=== PATIENT | female | born 1950 | race Caucasian/White ===

== ENCOUNTER 2017-11-12 17:14 | Emergency (ER) | payer MEDICARE ==
[2017-11-12] MEDS ORDERED: NORMAL SALINE 1,000 ML IV ONE (18:05)
[2017-11-12] MEDS ORDERED: IBUPROFEN 400 MG TABLET PO ONE (18:05)
--- NOTE | 2017-11-12 18:10 | ERNOTE ---
Medical Problem HPI - General Chief Complaint: Flu Symptoms Time Seen by Provider: 11/12/17 17:53 Source: patient, family Exam Limitations: no limitations - Immun/Allergies/Home Medications Immunizations: IMMUNIZATION HX Immunizations Up to Date Yes History of Influenza Vaccine No Hx Pneumococcal Vaccination No Allergies/Adverse Reactions: Allergies Penicillins Allergy (Intermediate, Verified 11/12/17 17:51) Hives Home Medications: HOME MEDICATIONS Acetaminophen [Tylenol] 1,000 mg PO Q4H 11/12/17 [Last Taken Unknown] Albuterol Sulfate [Ventolin HFA] 2 puff IH Q6H PRN 7 Days inhaler 11/12/17 [ Last Taken Unknown] Doxycycline Monohydrate 100 mg PO BID #20 tablet 11/12/17 [Last Taken Unknown] Fluconazole [Diflucan] 100 mg PO DAILY #2 tablet 11/12/17 [Last Taken Unknown] Lactobacillus Combination No.4 [Probiotic] 1 each PO DAILY 11/12/17 [Last Taken Unknown] Loratadine [Allergy] 10 mg PO DAILY 11/12/17 [Last Taken Unknown] guaiFENesin [Mucinex] 1,200 mg PO BID 11/12/17 [Last Taken Unknown] predniSONE [Deltasone] 20 mg PO BID #10 tablet 11/12/17 [Last Taken Unknown] - History of Present History Narrative: Patient presents with a fever, cough and a rapid heart rate. Patient was seen over at urgent care and her influenza was found to be negative and she was sent over here for further workup Timing: constant Severity: moderate Review of Systems - Review of Systems Constitutional: Present: See HPI EYE: Present: no symptoms reported ENT: Present: no symptoms reported Respiratory: Present: cough Cardiology: Present: palpitations Gastrointestinal/Abdominal: Present: no symptoms reported Genitourinary: Present: no symptoms reported Musculoskeletal: Present: no symptoms reported Skin: Present: no symptoms reported Neurological: Present: no symptoms reported Endocrine: Present: no symptoms reported Hematologic/Lymphatic: Present: no symptoms reported Psych: Present: no symptoms reported - Patient's Past Medical History Patient History - Medical: Arthritis Patient History - Cardiac/Respiratory: No pertinent hx Patient History - Cancer: Skin Patient History - Surgical Procedures: Hysterectomy Patient History - Other: None - Social History Living Situations: home Psych History: No pertinent hx Smoking Status: Never smoker Have you smoked in the past 12 months: Yes Alcohol Use: rarely Drug Use: none - Immunizations Immunizations Up to Date: Yes Hx Pneumococcal Vaccination: No History of Influenza Vaccine: No Physical Exam - Physical Exam General Appearance: Present: wd/wn, alert, moderate distress Head Exam: Present: normal inspection, no evidence of injury Eye Exam: Normal inspection: bilateral, PERRL: bilateral Ears, Nose, Throat: Present: normal ENT inspection, H, normal pharynx Neck: Present: normal inspection, nontender Respiratory: Present: no respiratory distress, no accessory muscle use, chest nontender, rales - questionable in the left lower lobe Cardiovascular/Chest: Present: no murmur, normal peripheral pulses, tachycardia Gastrointestinal/Abdominal: Present: normal bowel sounds, nontender, nondistended, soft, no organomegaly Rectal Exam: Present: deferred Back Exam: Present: normal inspection, normal range of motion Extremity Exam: Present: normal inspection, non-tender, no edema, normal range of motion Neurological Exam: Present: alert, oriented, normal mood/affect Skin Exam: Present: normal color, warm/dry Lymphatic Exam: Present: no adenopathy ED Progress - Results and Orders Patient's Lab Results:: I have reviewed the patient's lab results. - Vital Signs Patient's Vital Signs:: I have reviewed the patient's vital signs. Vital Signs: Vital Signs 11/12/17 17:45 Temperature 38 C H Pulse Rate 127 H Respiratory 16 Rate Blood Pressure 122/96 O2 Sat by Pulse 95 Oximetry - X-Ray X-Ray #1 X-Ray: chest Interpretation: Reviewed by me - Progress/Reassessment Chief Complaint: Flu Symptoms Progress:: Improved Plan - Plan Plan: Patient felt better after a liter of fluid and something to help get her fever down. Patient be started on antibiotics prednisone and Ventolin inhaler and she agrees to follow up with her family physician in 10 days to 2 weeks. Departure Clinical Impression: Bronchitis, COPD (chronic obstructive pulmonary disease) with acute bronchitis - Departure Disposition: Home self-care Condition: Good Instructions: Chronic Obstructive Pulmonary Disease Exacerbation, [id number] Referrals: Deborah Her MD [Primary Care Provider] - Prescriptions: Albuterol Sulfate [Ventolin HFA] 2 puff IH Q6H PRN 7 Days inhaler PRN Reason: Wheezing Doxycycline Monohydrate 100 mg PO BID #20 tablet Fluconazole [Diflucan] 100 mg PO DAILY #2 tablet predniSONE [Deltasone] 20 mg PO BID #10 tablet
[2017-11-12] MEDS ORDERED: IBUPROFEN 400 MG TABLET ONE (18:13)
[2017-11-12 18:24] LABS: Hematocrit 44.4 % (37.0-47.0); Mean Cell Volume 92.5 fl (78-100); Mean Corpuscular Hemoglobin 33.3 pg (27-31); Mean Platelet Volume 9.5 fl (6.0-9.5); Neutrophil # 6.7 K/mm3 (1.3-6.0); Neutrophil % 82.4 % (42-75.0); Platelet Count 239 K/mm3 (150-450); Red Cell Distribution Width 11.6 % (11.5-14.0); White Blood Count 8.2 K/mm3 (4.0-10.5)
[2017-11-12 18:28] LABS: Urine Bilirubin 1 mg/dl (NEGATIVE); Urine Blood 50 /ul (NEGATIVE); Urine Ketone 15 mg/dL (NEGATIVE); Urine Nitrite Negative (NEGATIVE); Urine Protein 15 mg/dL (NEGATIVE); Urine Specific Gravity 1.025 SP.GR. (1.005-1.010); Urine Urobilinogen Normal (NORMAL); Urine pH 5.5 pH (5.0-7.0)
[2017-11-12 18:37] LABS: Urine Appearance Slightly Cloudy; Urine Color Yellow
[2017-11-12 18:38] LABS: Urine Bacteria 2+; Urine RBC None Seen /hpf (0-5); Urine WBC TRACE /hpf (0-5)
[2017-11-12 18:39] LABS: Albumin * 4.1 gm/dl (3.4-5.0); BUN/Creatinine Ratio 11.1 (9.0-21.6); Bilirubin, Total 0.7 mg/dL (0.0-1.1); Ca. Corrected For Albumin 8.5 mg/dL (8.4-10.2); Calcium * 8.9 mg/dL (7.9-10.9); Carbon Dioxide 23.8 mmol/L (24-32.6); Potassium 3.8 mmol/L (3.4-4.6)
[2017-11-12 19:18] VITALS: BP 146/77
== END 2017-11-12 19:24 | disposition home or self-care (01) ==
LOC: ER 17:14
DX: Z85.828 Personal history of other malignant neoplasm of skin; J44.0 Chronic obstructive pulmonary disease with (acute) lower respiratory infection; J20.9 Acute bronchitis, unspecified